=== PATIENT | female | born 1980 | race Two or more races ===

== ENCOUNTER 2018-10-20 18:51 | Emergency (ER) | payer OTHER ==
[~2018-10-20] VITALS: Ht 165.1 cm; Wt 78.0 kg
[2018-10-20] MEDS ORDERED: [UNRECOGNIZED DRUG - REMARK] (19:53)
--- NOTE | 2018-10-20 20:12 | NUR ---
Patient discharged to home in stable conditon WITH TAKING PATIENT HOME. Written and verbal after care instructions given. Patient verbalizes understanding of instructions. WALKED OUT OF ER WITH NO DISTRESS
== END 2018-10-20 20:14 | disposition home or self-care (01) ==
LOC: ER 18:53
DX: R19.7 Diarrhea, unspecified (principal); E03.9 Hypothyroidism, unspecified; Z79.899 Other long term (current) drug therapy
CPT/HCPCS: A4663